=== PATIENT | male | born 1965 | race Caucasian/White ===

== ENCOUNTER 2016-11-20 16:21 | Emergency (ER) | payer OTHER | END 2016-11-20 18:35 | disposition home or self-care (01) | LOC: FER 16:21 | DX: S41.121A Laceration with foreign body of right upper arm, initial encounter (principal); I10 Essential (primary) hypertension; Z23 Encounter for immunization; Z79.899 Other long term (current) drug therapy; W25.XXXA Contact with sharp glass, initial encounter; Y92.810 Car as the place of occurrence of the external cause | CPT/HCPCS: 99282 ==

== ENCOUNTER 2016-12-22 20:39 | Emergency (ER) | payer OTHER ==
[2016-12-23 01:58] LABS: BASOPHIL 0.2 % (0-2); EOSINOPHIL 0.7 % (0-5); HGB 12.8 g/dl (13.2-18.0); LYMPHOCYTE 12.1 % (15-48); MCH 27.8 pg (25.0-31.0); MCHC 34.6 g/dL (32.0-36.0); MCV 80.3 fL (78.0-100.0); MONOCYTE 12.1 % (0-12); MPV 9.4 fL (6.0-9.5); NEUTROPHIL 74.9 % (41-80); PLT 264 K/uL (150-400); RBC 4.61 M/uL (4.70-6.00); RDW 12.9 % (11.5-14.0); WBC 15.7 K/uL (4.0-10.5)
[2016-12-23 02:19] LABS: ALBUMIN 4.2 g/dL (3.5-5.0); BILIRUBIN - TOTAL 0.6 mg/dL (0.1-1.0); CREATININE 1.3 mg/dL (0.7-1.2); GLOBULIN (CALCULATION) 2.8 g/dL (2.2-4.2); POTASSIUM 3.5 mmol/L (3.5-5.1)
== END 2016-12-23 03:10 | disposition home or self-care (01) ==
LOC: FER 20:39
PROVIDERS: Emergency Medicine
DX: J20.9 Acute bronchitis, unspecified (principal); Z88.5 Allergy status to narcotic agent
CPT/HCPCS: 36415; 71020; 80053; 85025

== ENCOUNTER → 2020-10-18 | Day surgery (SDC) | payer OTHER ==
[~2020-10-18] MED LIST: 8 HOUR650 MG PO; ADVAIR 250-501 EACH INH; ASCORBIC ACID500 MG PO; ASPIRIN EC81 MG PO; BREO ELLIPTA 11 EACH INH; CELEBREX **OUT100 MG PO; CIPRO500 MG PO; CLARITIN10 MG PO; HCTZ25 MG PO; IPRATROPIUM/ALB NEB; KLOR-CON 1010 MEQ PO; LISINOPRIL-HCT1 EACH PO; MEDROL 4MG DOSEP4 MG PO; METFORMIN HCL500 MG PO; METRONIDAZOLE500 MG PO; NEXIUM40 MG PO; NITROQUIK SL0.4 MG SL; ONDANSETRON ODT4 MG SL; OXY-IR 5MG5 MG PO; PRAVACHOL20 MG PO; PRINIVIL10 MG PO; PROTONIX 40MG T40 MG PO; SINGULAIR10 MG PO; TOPROL XL 25MG25 MG PO; TYLENOL #31 EACH PO; TYLENOL ARTHRI650 MG PO; VENTOLIN (2.5 MG/3 M INH; VIBRAMYCIN100 MG PO; VITAMIN D PO; VITAMIN D2000 UNI1 PO; ZINC PO
== END | disposition home or self-care (01) ==
LOC: FAS 08:29
DX: K22.70 Barrett's esophagus without dysplasia (principal); K21.9 Gastro-esophageal reflux disease without esophagitis; K29.50 Unspecified chronic gastritis without bleeding; K44.9 Diaphragmatic hernia without obstruction or gangrene; K40.20 Bilateral inguinal hernia, without obstruction or gangrene, not specified as recurrent; I42.0 Dilated cardiomyopathy; I10 Essential (primary) hypertension; E11.9 Type 2 diabetes mellitus without complications; E78.5 Hyperlipidemia, unspecified; G47.30 Sleep apnea, unspecified; M19.90 Unspecified osteoarthritis, unspecified site; J44.9 Chronic obstructive pulmonary disease, unspecified; R91.1 Solitary pulmonary nodule; Z86.16 Personal history of COVID-19; Z98.52 Vasectomy status; Z98.890 Other specified postprocedural states; Z88.5 Allergy status to narcotic agent; Z79.899 Other long term (current) drug therapy; Z87.891 Personal history of nicotine dependence; Z90.49 Acquired absence of other specified parts of digestive tract; Z79.84 Long term (current) use of oral hypoglycemic drugs
CPT/HCPCS: J2250; J7120